=== PATIENT | female | born 1985 | race Caucasian/White ===

== ENCOUNTER 2017-06-01 15:56 | Emergency (ER) | payer MEDICAID ==
[2017-06-01 15:56] VITALS: BMI 23.1
--- NOTE | 2017-06-01 15:57 | ED PDOC ---
Arrival/HPI - General Chief Complaint: Headache Time Seen by Provider: 06/01/17 15:57 Historian: Patient - History of Present Illness Narrative History of Present Illness (Text): 06/01/17 15:57 32 y/o female, pmh including hypothyroidism, penicillin allergy, c/o headache x 1 hour. Pt. stated that her boyfriend is intubated, very stress out, unilateral with throbbing, no nausea or vomiting, had history of the headaches, no change in vision, no numbness or tingling, no chest pain or shortness of breath, no palpitation, not on any blood thinners or anticoagulant, no history or family history of aneurysm, no rash, no other medical or psychological complaints. Past Medical History - Provider Review Nursing Documentation Reviewed: Yes - Infectious Disease Hx of Infectious Diseases: None - Endocrine/Metabolic Other/Comment: THYROID CANCER - REMOVED - Psychiatric Hx Substance Use: No - Surgical History Hx Section: Yes (x3) Hx Thyroidectomy: Yes (2010) Other/Comment: THYROID REMOVAL - Anesthesia Hx Anesthesia: Yes - Suicidal Assessment Feels Threatened In Home Enviroment: No Family/Social History - Physician Review Nursing Documentation Reviewed: Yes Family/Social History: Unknown Family HX Smoking Status: Never Smoked Hx Alcohol Use: No Hx Substance Use: No Allergies/Home Meds Allergies/Adverse Reactions: Allergies pcn Adverse Reaction (Uncoded 06/01/17 16:11) RASH Home Medications: Home Meds Medication Instructions Recorded Confirmed Levothyroxine [Synthroid] 100 mcg PO DAILY 06/03/15 06/01/17 Review of Systems - Review of Systems Constitutional: absent: Fatigue, Fevers Eyes: absent: Vision Changes ENT: absent: Hearing Changes Respiratory: absent: SOB, Cough Cardiovascular: absent: Chest Pain Gastrointestinal: absent: Abdominal Pain, Nausea, Vomiting Musculoskeletal: absent: Arthralgias Skin: absent: Rash, Pruritis Neurological: Headache. absent: Dizziness, Focal Weakness, Gait Changes, Speech Changes Physical Exam Vital Signs Reviewed: Yes Vital Signs Temp Pulse Resp BP Pulse Ox 06/01/17 17:11 75 20 134/94 H 98 06/01/17 16:45 98 F 75 20 149/96 H 98 06/01/17 16:02 98.1 F 88 19 168/111 H 99 Temperature: Afebrile Blood Pressure: Hypertensive Pulse: Regular Respiratory Rate: Normal Appearance: Positive for: Well-Appearing, Non-Toxic Pain Distress: Moderate Mental Status: Positive for: Alert and Oriented X 3 - Systems Exam Head: Present: Atraumatic, Normocephalic, Other (no temporal artery tenderness or jaw claudication. ). No: Tenderness, Contusion, Swelling, Ecchymosis, Abrasion, Laceration Pupils: Present: PERRL Extroacular Muscles: Present: EOMI Conjunctiva: Present: Normal Mouth: Present: Moist Mucous Membranes Neck: Present: Normal Range of Motion, Trachea Midline. No: Meningeal Signs, MIDLINE TENDERNESS, Paraspinal Tenderness, Lymphadenopathy Respiratory/Chest: Present: Clear to Auscultation, Good Air Exchange. No: Respiratory Distress, Accessory Muscle Use Cardiovascular: Present: Regular Rate and Rhythm, Normal S1, S2. No: Murmurs Abdomen: Present: Normal Bowel Sounds. No: Tenderness, Distention, Peritoneal Signs Back: Present: Normal Inspection Upper Extremity: Present: Normal Inspection. No: Cyanosis, Edema Lower Extremity: Present: Normal Inspection. No: Edema Neurological: Present: GCS=15, CN II-XII Intact, Speech Normal, Motor Func Grossly Intact, Gait Normal, Memory Normal, Other (no drift, normal finger to nose test, normal heel to mora test, walking with normal gait and posture. ) Skin: Present: Warm, Dry, Normal Color. No: Rashes Psychiatric: Present: Alert, Oriented x 3, Normal Insight, Normal Concentration Medical Decision Making ED Course and Treatment: 06/01/17 16:17 -IV reglan/benadryl -observe and reassess 06/01/17 17:26 -Urine hcg: negative -Pt. is neurologically intact with no focal neurological deficits. -Headache resolved with the medication, feeling hungry and wants to go home and eat. There is no signs of thyroid storm or temporal arteritis, no emergent labs or radiology studies indicated at this time. -Discharge home with naproxen, bed rest, stay hydrated and eat properly, sleep well, education on follow up with your own pmd and repeat the BP with your own pmd under non-stressful condition, return to the ER for any new or worsening signs or symptoms. - Medication Orders Current Medication Orders: Discontinued Medications Diphenhydramine HCl (Benadryl) 50 mg IVP STAT STA Stop: 11/11/17 16:14 Last Admin: 06/01/17 16:38 Dose: 50 mg IVP Administration Document 06/01/17 16:38 GMI (Rec: 06/01/17 16:38 GMI [place] [id number]) Charges for Administration # of IVP Administrations 1 Sodium Chloride (Sodium Chloride 0.9%) 1,000 mls @ 999 mls/hr IV .Q1H1M STA Stop: 06/01/17 17:13 Last Admin: 06/01/17 16:38 Dose: 999 mls/hr eMAR Start Stop Document 06/01/17 16:38 GMI (Rec: 06/01/17 16:38 [place] [id number]) Intravenous Solution Start Date 06/01/17 Start Time 16:38 Metoclopramide HCl (Reglan) 10 mg IVP STAT STA Stop: 06/01/17 16:14 Last Admin: 06/01/17 16:38 Dose: 10 mg IVP Administration Document 06/01/17 16:38 GMI (Rec: 06/01/17 16:38 GMI [place] [id number]) Charges for Administration # of IVP Administrations 1 - PA / TAIL TRIMMER / Resident Statement MD/DO has reviewed & agrees with the documentation as recorded. Disposition/Present on Arrival - Present on Arrival Any Indicators Present on Arrival: No History of DVT/PE: No History of Uncontrolled Diabetes: No Urinary Catheter: No History of Decub. Ulcer: No History Surgical Site Infection Following: None - Disposition Have Diagnosis and Disposition been Completed?: Yes Diagnosis: Headache Disposition: HOME/ ROUTINE Disposition Time: 17:28 Patient Plan: Discharge Condition: IMPROVED Additional Instructions: -Discharge home with naproxen, bed rest, stay hydrated and eat properly, sleep well, education on follow up with your own pmd and repeat the BP with your own pmd under non-stressful condition, return to the ER for any new or worsening signs or symptoms. Prescriptions: Naproxen 500 mg PO BID PRN #22 tab PRN Reason: Other Referrals: Terrell Petersen MD [Staff Provider] - Follow up with primary [facility] [Outside] - Follow up with primary Forms: WORK NOTE
[2017-06-01] MEDS ORDERED: Sodium Chloride 0.9% 1,000 ML IV STA (16:13)
[2017-06-01] MEDS ORDERED: DiphenhydrAMINE 50 mg/ml Inj IVP STA (16:13)
[2017-06-01 16:46] VITALS: PULSE 75; TEMP 98
[2017-06-01 17:41] VITALS: BP 124/71; RESP 19; O2SAT 100
== END 2017-06-01 17:42 | disposition home or self-care (01) ==
LOC: ED 15:56
DX: R51 Headache (principal); Z88.0 Allergy status to penicillin; E03.9 Hypothyroidism, unspecified
CPT/HCPCS: 96361; 96374; 96375; 99285; J1200; J2765; J7040